=== PATIENT | female | born 1975 | race Caucasian/White ===

== ENCOUNTER 2017-07-26 07:16 | Emergency (ER) | payer BC ==
[2017-07-26 07:41] VITALS: BP 153/113
--- NOTE | 2017-07-26 08:00 | UC ---
Chris Cobos Rebecca, scribed for Isabelle Hua MD on 07/26/17 at 0749 . General HPI - HPI Summary HPI Summary: Pt is a 42 y/o F who presents to [facility] c/o productive cough and chest congestion for 3 days. Productive cough beings up yellow phlegm. Pt reports that she believes she has a cold and that whenever she gets a cold, it turns into bronchitis which occurs 2x per year. Bronchitis is typically treated with Abx and she has had PNA in the past. Additionally c/o WOOD, sore throat, SOB, chest heaviness with breathing and nausea secondary to cough. Denies CP, fever, ear pain, V/D, palpitations and eye discharge. Pt is currently not in any pain. No known sources of infection. - History of Current Complaint Chief Complaint: UCGeneralIllness Stated Complaint: COUGH CONGESTION Time Seen by Provider: 07/26/17 07:41 Hx Obtained From: Patient Hx Last Menstrual Period: pt does not know Onset/Duration: Lasting Days - 3 days, Still Present Current Severity: None Pain Intensity: 0 Aggravating: Nothing Alleviating: Nothing Associated Signs & Symptoms: Positive: Cough, Headache, Nausea, SOB. Negative: Chest Pain, Diarrhea, Fever, Vomiting Similar Episode/Dx as: Prior instances of cold with bronchitis - Allergy/Home Medications Allergies/Adverse Reactions: Allergies Allergy/AdvReac Type Severity Reaction Status Date / Time No Known Allergies Allergy Verified 07/26/17 07:29 Home Medications: Home Medications Drospirenone-Ethinyl Estradiol [Rosibel 28 3-0.03 mg] 1 tab PO DAILY 07/26/17 [ History Confirmed 07/26/17] Metoprolol Tartrate [Lopressor] 50 mg PO DAILY 07/26/17 [History Confirmed 07/26] Sertraline HCl [Zoloft] 25 mg PO DAILY 07/26/17 [History Confirmed 07/26/17] PMH/Surg Hx/FS Hx/Imm Hx - Additional Past Medical History Additional PMH: NEGATIVE PMHx: Asthma, COPD, DM, Ulcers Cardiovascular History: Hypertension Psychological History: Anxiety - Surgical History Surgical History: Yes Surgery Procedure, Year, and Place: Breast tumor removed 1999 - Family History Known Family History: Positive: Hypertension - father, Other - Aneurysm (father) - Social History Occupation: Employed Full-time - Teacher Lives: With Family - Daughter Alcohol Use: Rare Substance Use Type: None Smoking Status (MU): Never Smoked Tobacco Review of Systems Constitutional: Fatigue Skin: Negative Eyes: Negative ENT: Sore Throat Respiratory: Shortness Of Breath, Cough - productive, Other - Chest congestion, chest heaviness with breathing Cardiovascular: Negative Gastrointestinal: Nausea Genitourinary: Negative Motor: Negative Neurovascular: Negative Musculoskeletal: Negative Neurological: Headache Psychological: Other - recent increase in anxiety. Bother her and father last month. Has been using sertraline for about 2 years. All Other Systems Reviewed And Are Negative: Yes - Comments Additional Review of Systems Comments: NEGATIVE: CP, fever, ear pain, V/D, palpitations and eye discharge. Physical Exam Triage Information Reviewed: Yes Appearance: Ill-Appearing - looks fatigued and unwell. Vital Signs: Initial Vital Signs Temp 98.1 F 07/26/17 07:30 Pulse 93 07/26/17 07:30 Resp 16 07/26/17 07:30 BP 153/113 07/26/17 07:30 Pulse Ox 97 07/26/17 07:30 Eyes: Positive: Conjunctiva Inflamed - mild injection, scant drainage ENT: Positive: Pharyngeal erythema Neck: Positive: Supple, Nontender, No Lymphadenopathy Respiratory: Positive: Lungs clear, Normal breath sounds Cardiovascular: Positive: RRR, No Murmur Musculoskeletal Exam: Normal Neurological Exam: Normal Psychological Exam: Normal - looks mildly depressed. Skin Exam: Normal Course/Dx - Course Course Of Treatment: Pt is a 42 y/o F who presents to [facility] c/o productive cough and chest congestion for 3 days with WOOD, sore throat, SOB, chest heaviness with breathing and nausea secondary to cough though she denies any pain now. Elevated BP noted. Pt medications reviewed this visit. - Differential Dx - Multi-Symptom Provider Diagnoses: sinusitis, URI. hypertension Discharge - Discharge Plan Condition: Stable Disposition: HOME Prescriptions: Azithromyxin ROBBIN (NF) [Z-Robbin (Zithromax) 250 mg tabs #6] 2 tab PO .TODAY, THEN 1 DAILY #6 tab Patient Education Materials: Sinusitis (ED) Forms: *Work Release Referrals: Shin Saldana MD [Primary Care Provider] - Additional Instructions: Begin azithromycin for treatment of sinusitis, due to your tendency to develop lower respiratory infections. Your blood pressure today is elevated, partly because you have not taken your metoprolol today. Ensure that you do regular checks at home and follow up with [facility] to ensure that your control is good. Use over the counter guiafensin 600mg twice daily to ease chest congestion. The documentation as recorded by the Chris perdomo Rebecca accurately reflects the service I personally performed and the decisions made by me, Isabelle Hua MD.
== END 2017-07-26 08:00 | disposition home or self-care (01) ==
LOC: UCEAST 07:16
DX: J32.9 Chronic sinusitis, unspecified (principal); J06.9 Acute upper respiratory infection, unspecified; I10 Essential (primary) hypertension; F41.9 Anxiety disorder, unspecified
CPT/HCPCS: 99212; G0463

== ENCOUNTER 2017-07-28 11:23 | Emergency (ER) | payer BC ==
--- NOTE | 2017-07-28 12:15 | UC ---
Respiratory Complaint HPI - HPI Summary HPI Summary: 42 year old male presents with complains cough and chest congestion. - History of Current Complaint Chief Complaint: UCRespiratory Stated Complaint: COUGH Time Seen by Provider: 07/28/17 12:14 Hx Obtained From: Patient Hx Last Menstrual Period: pt does not know Onset/Duration: Sudden Onset Severity Initially: Moderate Severity Currently: Moderate Pain Scale Used: 0-10 Numeric - Allergies/Home Medications Allergies/Adverse Reactions: Allergies Allergy/AdvReac Type Severity Reaction Status Date / Time No Known Allergies Allergy Verified 07/26/17 07:29 PMH/Surg Hx/FS Hx/Imm Hx Previously Healthy: Yes - Surgical History Surgical History: Yes Surgery Procedure, Year, and Place: Breast tumor removed 1999 - Family History Known Family History: Positive: Hypertension - father, Other - Aneurysm (father) - Social History Alcohol Use: Rare Substance Use Type: None Smoking Status (MU): Never Smoked Tobacco Review of Systems Constitutional: Negative Skin: Negative Eyes: Negative ENT: Sore Throat, Nasal Discharge, Sinus Congestion, Sinus Pain/Tenderness Respiratory: Cough Cardiovascular: Negative Gastrointestinal: Negative Genitourinary: Negative Motor: Negative Neurovascular: Negative Musculoskeletal: Negative Neurological: Negative Psychological: Negative All Other Systems Reviewed And Are Negative: Yes Physical Exam Triage Information Reviewed: Yes Vital Signs: Initial Vital Signs Temp 36.7 C 07/28/17 12:09 Pulse 93 07/28/17 12:09 Resp 18 07/28/17 12:09 BP 146/105 07/28/17 12:09 Pulse Ox 99 07/28/17 12:09 Vital Signs Reviewed: Yes Eye Exam: Normal ENT: Positive: Pharyngeal erythema, Nasal congestion Dental Exam: Normal Neck exam: Normal Neck: Positive: 1 Respiratory: Positive: Rhonchi, Wheezing Cardiovascular Exam: Normal Abdominal Exam: Normal Musculoskeletal Exam: Normal Neurological Exam: Normal Psychological Exam: Normal Skin Exam: Normal UC Diagnostic Evaluation - Laboratory O2 Sat by Pulse Oximetry: 99 - Radiology Xray Interpretation: Positive (See Comments) - pneumonia Radiology Interpretation Completed By: ED Physician, Radiologist Respiratory Course/Dx - Differential Dx/Diagnosis Provider Diagnoses: cough. chest congestion. fever. pneumonia Discharge - Discharge Plan Condition: Stable Disposition: HOME Prescriptions: Albuterol HFA INHALER* [Ventolin HFA Inhaler*] 1 puff INH Q6H PRN #1 mdi PRN Reason: Wheezing Levofloxacin TAB* [Levaquin TAB*] 750 mg PO DAILY #7 tab Methylprednisolone [Medrol Dosepak 4 MG*] 4 mg PO .SEE FABI INSTRUCTION #21 tab guaiFENesin/CODIEN 100MG-10MG* [Robitussin AC 100Mg-10Mg*] 5 ml PO Q6H PRN #120 ml MDD 20 ml PRN Reason: Cough Patient Education Materials: Pneumonia (ED) Referrals: Shin Saldana MD [Primary Care Provider] -
--- NOTE | 2017-07-28 13:33 | RAD ---
INDICATION: Cough COMPARISON: Chest x-ray dated April 28, 2005 TECHNIQUE: PA and lateral views of the chest were obtained. FINDINGS: The heart and mediastinum are normal in size and contour. There is patchy infiltrate overlying the mid-level left lung. On the lateral view chest x-ray is density appears to be localized to the dependent portion of the left upper lobe. Visualized bones are normal for the patient's age. There is no radiographic evidence of free air beneath the diaphragm IMPRESSION: CHEST X-RAY FINDINGS ARE MOST CONSISTENT WITH LEFT UPPER LOBE PNEUMONIA. FOLLOW-UP CHEST X-RAY AFTER APPROPRIATE COURSE OF THERAPY IS RECOMMENDED TO ASCERTAIN RESOLUTION.
[2017-07-28 14:17] VITALS: BP 161/110
== END 2017-07-28 14:21 | disposition home or self-care (01) ==
LOC: UCEAST 11:23
DX: J18.9 Pneumonia, unspecified organism (principal); R05 Cough; R09.89 Other specified symptoms and signs involving the circulatory and respiratory systems; R50.9 Fever, unspecified
CPT/HCPCS: 71020; 99211; G0463